=== PATIENT | male | born 1980 | race Two or more races ===

== ENCOUNTER 2023-07-17 12:07 | Emergency (ER) | payer MEDICAID, OTHER ==
[~2023-07-17] VITALS: Ht 167.6 cm; Wt 76.0 kg
[2023-07-17] MEDS ORDERED: HYDR-4902 PO (14:14)
[2023-07-17 18:21] VITALS: BP 134/94; PULSE 84; RESP 18; TEMP 98.5; O2SAT 97
== END 2023-07-17 18:23 | disposition home or self-care (01) ==
LOC: ER 12:07
DX: S22.41XA Multiple fractures of ribs, right side, initial encounter for closed fracture (principal); W18.09XA Striking against other object with subsequent fall, initial encounter; Y93.89 Activity, other specified; Y92.89 Other specified places as the place of occurrence of the external cause; Y99.8 Other external cause status
CPT/HCPCS: 71101